=== PATIENT | female | born 1935 | race Caucasian/White ===

== ENCOUNTER 2018-06-05 10:29 | Day surgery (SDC) | payer MEDICARE, OTHER ==
[2018-06-05] MEDS ORDERED: OSC500T PO (12:21)
[2018-06-05] MEDS ORDERED: MULT1TAB74 PO (12:21)
[2018-06-05] MEDS ORDERED: HYDR-3965 PO (12:21)
[2018-06-05] MEDS ORDERED: ABEM100T PO (12:21)
[2018-06-05] MEDS ORDERED: FULV250D2 (12:21)
[2018-06-05] MEDS ORDERED: RIVA20TA PO (12:21)
[2018-06-05] MEDS ORDERED: TRIA1CAP6 PO (12:21)
[2018-06-05] MEDS ORDERED: GABA-530 PO (12:21)
[2018-06-05] MEDS ORDERED: DENO120V (12:24)
== END 2018-06-05 12:45 | disposition home or self-care (01) ==
LOC: WOUND CARE 10:29
PROVIDERS: ATTEND Surgery
DX: T81.89XA Other complications of procedures, not elsewhere classified, initial encounter (principal); L98.412 Non-pressure chronic ulcer of buttock with fat layer exposed; Z96.653 Presence of artificial knee joint, bilateral; Y83.8 Other surgical procedures as the cause of abnormal reaction of the patient, or of later complication, without mention of misadventure at the time of the procedure
CPT/HCPCS: 11042; A6021; A6212

== ENCOUNTER 2018-06-12 10:27 | Day surgery (SDC) | payer MEDICARE, OTHER ==
[~2018-06-12 10:27] MED LIST: ABEM100T PO; DENO120V; FULV250D2; GABA-530 PO; HYDR-3965 PO; MULT1TAB74 PO; OSC500T PO; RIVA20TA PO; TRIA1CAP6 PO
== END 2018-06-12 12:37 | disposition home or self-care (01) ==
LOC: WOUND CARE 10:27
PROVIDERS: ATTEND Surgery
DX: T80.89XD Other complications following infusion, transfusion and therapeutic injection, subsequent encounter (principal); L98.412 Non-pressure chronic ulcer of buttock with fat layer exposed; Z96.653 Presence of artificial knee joint, bilateral; Y83.8 Other surgical procedures as the cause of abnormal reaction of the patient, or of later complication, without mention of misadventure at the time of the procedure
CPT/HCPCS: 11042; 87070; 87075; 87102; A6213; A6266; 87076

== ENCOUNTER 2018-06-15 10:30 | Outpatient (CLI) | payer MEDICARE, OTHER | END 2018-06-15 12:45 | disposition home or self-care (01) | LOC: WOUND CARE 10:30 → EDSTATUS 10:30 → WOUND CARE 12:45 | PROVIDERS: ATTEND Surgery | DX: T81.89XD Other complications of procedures, not elsewhere classified, subsequent encounter (principal); L98.412 Non-pressure chronic ulcer of buttock with fat layer exposed; Z96.653 Presence of artificial knee joint, bilateral; Y83.8 Other surgical procedures as the cause of abnormal reaction of the patient, or of later complication, without mention of misadventure at the time of the procedure | CPT/HCPCS: 99214; A6212; A6266 ==

== ENCOUNTER 2018-06-20 09:58 | Day surgery (SDC) | payer MEDICARE, OTHER | END 2018-06-20 11:51 | disposition home or self-care (01) | LOC: WOUND CARE 09:58 | PROVIDERS: ATTEND Surgery | DX: T81.89XD Other complications of procedures, not elsewhere classified, subsequent encounter (principal); L98.412 Non-pressure chronic ulcer of buttock with fat layer exposed; Z96.653 Presence of artificial knee joint, bilateral; Y83.8 Other surgical procedures as the cause of abnormal reaction of the patient, or of later complication, without mention of misadventure at the time of the procedure | CPT/HCPCS: 11042; A6212; A6266 ==

== ENCOUNTER 2018-06-23 09:49 | Outpatient (CLI) | payer MEDICARE, OTHER | END 2018-06-23 11:15 | disposition home or self-care (01) | LOC: WOUND CARE 09:49 → EDSTATUS 10:00 → WOUND CARE 11:15 | PROVIDERS: ATTEND Surgery | DX: T81.89XD Other complications of procedures, not elsewhere classified, subsequent encounter (principal); L98.412 Non-pressure chronic ulcer of buttock with fat layer exposed; Z96.653 Presence of artificial knee joint, bilateral; Y83.8 Other surgical procedures as the cause of abnormal reaction of the patient, or of later complication, without mention of misadventure at the time of the procedure | CPT/HCPCS: 99211; A6212; A6266 ==

== ENCOUNTER 2018-06-27 09:56 | Day surgery (SDC) | payer MEDICARE, OTHER | END 2018-06-27 11:13 | disposition home or self-care (01) | LOC: WOUND CARE 09:56 | PROVIDERS: ATTEND Surgery | DX: T81.89XD Other complications of procedures, not elsewhere classified, subsequent encounter (principal); L98.412 Non-pressure chronic ulcer of buttock with fat layer exposed; Z96.653 Presence of artificial knee joint, bilateral; Y83.8 Other surgical procedures as the cause of abnormal reaction of the patient, or of later complication, without mention of misadventure at the time of the procedure | CPT/HCPCS: 97597; A6021; A6212 ==

== ENCOUNTER 2018-07-04 09:45 | Day surgery (SDC) | payer MEDICARE, OTHER ==
[2018-07-04] MEDS ORDERED: LIDOcaine/PRILOcaine 5gm cream TP ONE (09:53)
== END 2018-07-04 12:05 | disposition home or self-care (01) ==
LOC: WOUND CARE 09:45
PROVIDERS: ATTEND Surgery
DX: T81.89XD Other complications of procedures, not elsewhere classified, subsequent encounter (principal); L98.412 Non-pressure chronic ulcer of buttock with fat layer exposed; Z96.653 Presence of artificial knee joint, bilateral; Y83.8 Other surgical procedures as the cause of abnormal reaction of the patient, or of later complication, without mention of misadventure at the time of the procedure
CPT/HCPCS: 11042; A6021; A6213

== ENCOUNTER 2018-07-11 09:29 | Day surgery (SDC) | payer MEDICARE, OTHER ==
[2018-07-11] MEDS ORDERED: LIDOcaine/PRILOcaine 5gm cream TP ONE (09:37)
== END 2018-07-11 10:20 | disposition home or self-care (01) ==
LOC: WOUND CARE 09:29
PROVIDERS: ATTEND Surgery
DX: T81.89XD Other complications of procedures, not elsewhere classified, subsequent encounter (principal); L98.412 Non-pressure chronic ulcer of buttock with fat layer exposed; Z96.653 Presence of artificial knee joint, bilateral; Y83.8 Other surgical procedures as the cause of abnormal reaction of the patient, or of later complication, without mention of misadventure at the time of the procedure
CPT/HCPCS: A6222; C5271; Q4102; A6021; A6212

== ENCOUNTER 2018-07-18 09:27 | Day surgery (SDC) | payer MEDICARE, OTHER ==
[2018-07-18] MEDS ORDERED: LIDOcaine/PRILOcaine 5gm cream TP ONE (09:42)
== END 2018-07-18 10:51 | disposition home or self-care (01) ==
LOC: WOUND CARE 09:27
PROVIDERS: ATTEND Surgery
DX: T81.89XD Other complications of procedures, not elsewhere classified, subsequent encounter (principal); L98.412 Non-pressure chronic ulcer of buttock with fat layer exposed; Z96.653 Presence of artificial knee joint, bilateral; Y83.8 Other surgical procedures as the cause of abnormal reaction of the patient, or of later complication, without mention of misadventure at the time of the procedure
CPT/HCPCS: 97597; A6021; A6206; A6212

== ENCOUNTER 2018-07-24 09:25 | Day surgery (SDC) | payer MEDICARE, OTHER | END 2018-07-24 11:21 | disposition home or self-care (01) | LOC: WOUND CARE 09:25 | PROVIDERS: ATTEND Surgery | DX: T81.89XD Other complications of procedures, not elsewhere classified, subsequent encounter (principal); L98.412 Non-pressure chronic ulcer of buttock with fat layer exposed; Z96.653 Presence of artificial knee joint, bilateral; Y83.8 Other surgical procedures as the cause of abnormal reaction of the patient, or of later complication, without mention of misadventure at the time of the procedure | CPT/HCPCS: A6209; A6222; C5271; Q4102; A6212; A6250 ==

== ENCOUNTER 2018-08-08 09:28 | Day surgery (SDC) | payer MEDICARE, OTHER ==
[2018-08-08] MEDS ORDERED: LIDOcaine/PRILOcaine 5gm cream TP ONE (10:18)
== END 2018-08-08 11:07 | disposition home or self-care (01) ==
LOC: WOUND CARE 09:28
PROVIDERS: ATTEND Surgery
DX: T81.89XD Other complications of procedures, not elsewhere classified, subsequent encounter (principal); L98.412 Non-pressure chronic ulcer of buttock with fat layer exposed; Z96.653 Presence of artificial knee joint, bilateral; Y83.8 Other surgical procedures as the cause of abnormal reaction of the patient, or of later complication, without mention of misadventure at the time of the procedure
CPT/HCPCS: A6021; A6212

== ENCOUNTER 2018-08-15 09:30 | Day surgery (SDC) | payer MEDICARE, OTHER | END 2018-08-15 10:42 | disposition home or self-care (01) | LOC: WOUND CARE 09:30 | PROVIDERS: ATTEND Surgery | DX: T81.89XD Other complications of procedures, not elsewhere classified, subsequent encounter (principal); L98.412 Non-pressure chronic ulcer of buttock with fat layer exposed; Z96.653 Presence of artificial knee joint, bilateral; Y83.8 Other surgical procedures as the cause of abnormal reaction of the patient, or of later complication, without mention of misadventure at the time of the procedure | CPT/HCPCS: 97597; A6021; A6206; A6212 ==

== ENCOUNTER 2018-08-29 09:33 | Day surgery (SDC) | payer MEDICARE | END 2018-08-29 10:44 | disposition home or self-care (01) | LOC: WOUND CARE 09:33 | PROVIDERS: ATTEND Surgery | DX: T81.89XD Other complications of procedures, not elsewhere classified, subsequent encounter (principal); L98.412 Non-pressure chronic ulcer of buttock with fat layer exposed; Z96.653 Presence of artificial knee joint, bilateral; Y83.8 Other surgical procedures as the cause of abnormal reaction of the patient, or of later complication, without mention of misadventure at the time of the procedure | CPT/HCPCS: 17250; 97597; A6021; A6212 ==

== ENCOUNTER 2018-09-19 09:28 | Outpatient (CLI) | payer MEDICARE ==
--- NOTE | 2018-09-19 11:15 | NUR ---
Patient ambulated independently from [facility] accompanied by daughter Tigist and was admitted to outpatient wound care for physician visit with Tank Akhtar MD. Dressing removed, wound cleansed. Patient assessed for changes in conditions, medications and medical history. [facility] - Dr. Akhtar at bedside accompanied by RN. Wound assessed by and is declared healed by MD. Plan of care discussed with patient and Tigist. No dressing ordered or placed. Patient instructed on the signs and symptoms of infection and to call the [facility]ound [facility] if any occur or to go to the ED if we are closed: Increased pain in wound Increase in drainage from the wound Redness in the skin surrounding the wound Bleeding from the wound Temperature of 101 or greater Patient instructed that the weight of their body puts a large amount of pressure on their wounds. This pressure keeps the new tissue from growing and inhibits new blood vessels from forming. Explained that, if they continue to bear weight on a body part that has a wound, the time it takes to heal the wound increases, the wound may get worse or the wound may not heal at all. Patient and Tigist verbalized understanding of all discharge instructions and plan of care and patient ambulated independently out to [facility] accompanied by Tigist and is in stable condition with no sign or symptom of distress at time of discharge.
== END 2018-09-19 11:10 | disposition home or self-care (01) ==
LOC: WOUND CARE 09:28 → EDSTATUS 09:30 → WOUND CARE 11:10
PROVIDERS: ATTEND Surgery
DX: T81.89XD Other complications of procedures, not elsewhere classified, subsequent encounter (principal); L98.412 Non-pressure chronic ulcer of buttock with fat layer exposed; Z96.653 Presence of artificial knee joint, bilateral; Z85.3 Personal history of malignant neoplasm of breast; Z85.830 Personal history of malignant neoplasm of bone; Y83.8 Other surgical procedures as the cause of abnormal reaction of the patient, or of later complication, without mention of misadventure at the time of the procedure
CPT/HCPCS: G0463

== ENCOUNTER 2020-04-09 21:19 | Emergency (ER) | payer MEDICARE ==
[~2020-04-09] VITALS: Ht 157.5 cm; Wt 66.8 kg
[~2020-04-09 21:19] MED LIST changes: +CALC-965 PO; +CHLO118M PO; -DENO120V; +DENO120V IM; -FULV250D2; -HYDR-3965 PO; +HYDR-4383 PO; +MULT-1085 PO; -MULT1TAB74 PO; -OSC500T PO; -TRIA1CAP6 PO; +[UNRECOGNIZED DRUG - CODE] PO
[2020-04-09] MEDS ORDERED: normal saline 1000ML IV soln IVB ONE (22:35)
[2020-04-09] MEDS ORDERED: ondansetron/PF 4mg/2ml inj IV ONE (22:35)
[2020-04-09] MEDS ORDERED: pantoprazole 40 MG vial IV ONE (22:35)
--- NOTE | 2020-04-09 22:44 | NUR ---
Return from X-ray via w/c.
--- NOTE | 2020-04-09 22:58 | NUR ---
pt unable to void at this time, she would like to wait for her fluids to finish
[2020-04-09 23:02] LABS: BASOPHILS % (AUTO) 0.2 % (0-1); EOSINOPHILS % (AUTO) 0.5 % (0-6); HEMATOCRIT 25.9 % (35.0-45.0); HEMOGLOBIN 8.6 g/dl (12.0-16.0); LYMPHOCYTES # (AUTO) 0.9 X10'3 (1.1-4.8); LYMPHOCYTES % (AUTO) 19.8 % (21-51); MEAN CORPUSCULAR HGB CONC 33.3 g/dL (33.0-36.5); MONOCYTES # (AUTO) 0.3 X10'3 (0-0.9); MONOCYTES % (AUTO) 5.9 % (2-12); NEUTROPHILS # (AUTO) 3.4 X10'3 (1.8-7.7); NEUTROPHILS % (AUTO) 73.6 % (42-75); PLATELET COUNT 161 X10'3 (140-440); RED CELL DISTRIBUTION WIDTH 14.6 % (11.5-14.5); WHITE BLOOD COUNT 4.6 X10'3 (4.5-11.0)
[2020-04-09 23:17] LABS: ALANINE AMINOTRANSFERASE 16 U/L (12-78); ALBUMIN 3.4 G/DL (3.4-5.0); ALBUMIN/GLOBULIN RATIO 1.1 (1.1-1.5); ALKALINE PHOSPHATASE 82 IU/L (46-116); ANION GAP 5 (8-16); ASPARTATE AMINO TRANSFERASE 19 U/L (10-37); BILIRUBIN,TOTAL 0.8 MG/DL (0.1-1.0); BLOOD UREA NITROGEN 24 MG/DL (7-18); BUN/CREATININE RATIO 12.8 (6.6-38.0); CALCIUM 10.4 MG/DL (8.5-10.1); CHLORIDE 105 MMOL/L (99-107); CREATININE 1.88 MG/DL (0.40-0.90); GLUCOSE 101 MG/DL (70-104); POTASSIUM 3.3 MMOL/L (3.5-5.1); SODIUM 138 MMOL/L (135-145); TOTAL PROTEIN 6.6 G/DL (6.4-8.2); eGFR 25 ML/MIN
[2020-04-09 23:34] LABS: CLARITY,URINE CLEAR (Clear); COLOR,URINE YELLOW (Yellow); GLUCOSE, URINE NEGATIVE (Neg); KETONES,URINE TRACE mg/dl (Neg); LEUKOCYTE ESTERASE ,URINE TRACE (Neg); NITRITES, URINE NEGATIVE (Neg); OCCULT BLOOD,URINE NEGATIVE (Neg); PH,URINE 5.5 (4.8-8.0); PROTEIN,URINE NEGATIVE (Neg); UROBILINOGEN,URINE 0.2 E.U/dL (0.2-1.0)
[2020-04-09 23:38] LABS: UA COLLECTION TYPE CLN CATCH MIDSTREAM
[2020-04-09 23:40] LABS: BACTERIA,URINE FEW /HPF (Neg); RBC,URINE NONE SEEN /HPF (0-2); SQUAMOUS EPITHELIAL CELL,UR FEW /LPF (FEW); WBC,URINE 0-4 /HPF (0-4)
[2020-04-10 00:09] VITALS: BP 148/80
== END 2020-04-10 00:37 | disposition home or self-care (01) ==
LOC: ER 21:19
DX: R50.9 Fever, unspecified (principal); Z20.828 Contact with and (suspected) exposure to other viral communicable diseases; I10 Essential (primary) hypertension; Z85.3 Personal history of malignant neoplasm of breast; Z79.899 Other long term (current) drug therapy
CPT/HCPCS: 36415; 71046; 80053; 81001; 85025; 87088; 96374; 96375; 99284; C9113; J2405; J7030; U0003

== ENCOUNTER 2020-05-24 12:17 | Observation (INO) | payer MEDICARE ==
[~2020-05-24] VITALS: Ht 158.8 cm; Wt 66.8 kg
[2020-05-24 13:03] LABS: BASOPHILS # (AUTO) 0.1 X10'3 (0-0.2); BASOPHILS % (AUTO) 1.5 % (0-1); EOSINOPHILS # (AUTO) 0.1 X10'3 (0-0.9); EOSINOPHILS % (AUTO) 2.5 % (0-6); HEMATOCRIT 24.7 % (35.0-45.0); HEMOGLOBIN 8.1 g/dl (12.0-16.0); LYMPHOCYTES # (AUTO) 1.1 X10'3 (1.1-4.8); LYMPHOCYTES % (AUTO) 31.5 % (21-51); MEAN CORPUSCULAR HGB CONC 32.9 g/dL (33.0-36.5); MEAN CORPUSCULAR VOLUME 97.5 FL (78-98); MEAN PLATELET VOLUME 6.3 FL (7.4-10.4); MONOCYTES # (AUTO) 0.3 X10'3 (0-0.9); MONOCYTES % (AUTO) 7.3 % (2-12); NEUTROPHILS # (AUTO) 2.1 X10'3 (1.8-7.7); NEUTROPHILS % (AUTO) 57.2 % (42-75); PLATELET COUNT 195 X10'3 (140-440); RED BLOOD COUNT 2.54 X10'6 (4.20-5.60); RED CELL DISTRIBUTION WIDTH 14.9 % (11.5-14.5); WHITE BLOOD COUNT 3.6 X10'3 (4.5-11.0)
[2020-05-24 13:14] LABS: PARTIAL THROMBOPLASTIN TIME 30 SECONDS (22-32)
[2020-05-24 13:16] LABS: ALANINE AMINOTRANSFERASE 17 U/L (12-78); ALBUMIN 3.3 G/DL (3.4-5.0); ALBUMIN/GLOBULIN RATIO 1.1 (1.1-1.5); ALKALINE PHOSPHATASE 85 IU/L (46-116); ANION GAP 5 (8-16); ASPARTATE AMINO TRANSFERASE 21 U/L (10-37); BILIRUBIN,TOTAL 0.6 MG/DL (0.1-1.0); BLOOD UREA NITROGEN 19 MG/DL (7-18); CALCIUM 10.4 MG/DL (8.5-10.1); CHLORIDE 102 MMOL/L (99-107); CREATININE 1.72 MG/DL (0.40-0.90); GLUCOSE 97 MG/DL (70-104); POTASSIUM 3.2 MMOL/L (3.5-5.1); SODIUM 138 MMOL/L (135-145); TOTAL CARBON DIOXIDE 31.2 MMOL/L (24-32); TOTAL PROTEIN 6.4 G/DL (6.4-8.2); eGFR 28 ML/MIN
[2020-05-24] MEDS ORDERED: normal saline 1000ml 1,000 ML IV SCH (14:41)
[2020-05-24] MEDS ORDERED: magnesium 2GM in 50ml NS 50 ML IV PRN (14:45)
[2020-05-24] MEDS ORDERED: mag hydrox/Alum hydrox/simeth 30ml oral suspension PO PRN (14:45)
[2020-05-24] MEDS ORDERED: acetaminophen 650mg rectal suppository RC PRN (14:45)
[2020-05-24] MEDS ORDERED: bisacodyl 10mg suppository rectal RC PRN (14:45)
[2020-05-24] MEDS ORDERED: potassium Cl 20 mEq SR tablet PO PRN (14:45)
[2020-05-24] MEDS ORDERED: HYDROcodone/acetaminophen 10/325mg tab PO PRN (14:45)
[2020-05-24] MEDS ORDERED: morphine 2 MG/ML inj. syringe IV PRN ×2 (14:45)
[2020-05-24] MEDS ORDERED: ondansetron/PF 4mg/2ml inj IV PRN (14:45)
[2020-05-24] MEDS ORDERED: magnesium 4gm in 100ml NS 100 ML IV PRN (14:45)
[2020-05-24] MEDS ORDERED: magnesium hydroxide 30ml (MOM) UD suspension PO PRN (14:45)
[2020-05-24] MEDS ORDERED: HYDROcodone/acetaminophen 5mg/325mg tablet PO PRN (14:45)
[2020-05-24] MEDS ORDERED: magnesium Cl slow-release 64mg tablet PO PRN (14:45)
[2020-05-24] MEDS ORDERED: acetaminophen 325mg tablet PO PRN ×2 (14:45)
[2020-05-24] MEDS ORDERED: potassium CL 10mEq/100ml bag 100 ML IV PRN ×2 (14:45)
--- NOTE | 2020-05-24 16:35 | NUR ---
Patient in room [facility]. I have received report from Noel BUI and had the opportunity to ask questions and assume patient care.
[2020-05-24 17:34] LABS: OCCULT BLOOD STOOL NEGATIVE (Neg)
[2020-05-24 18:00] VITALS: BP 155/72
--- NOTE | 2020-05-24 18:21 | NUR ---
Patient in room [facility]. I have received report from Anny BUI and had the opportunity to ask questions and assume patient care.
--- NOTE | 2020-05-24 18:21 | NUR ---
Patient in room [facility]. I have received report from MOHAN BUI and had the opportunity to ask questions and assume patient care.
[2020-05-24] MEDS: potassium Cl 20 mEq SR tablet PO PRN ×2 (19:22→23:59)
[2020-05-24] MEDS ORDERED: APIX2.5T PO (19:48)
[2020-05-24] MEDS: K and/or MAG REPLACEMENT MC SCH (20:00)
[2020-05-24 20:41] VITALS: BP 161/68
[2020-05-24] MEDS ORDERED: temazepam 15mg capsule PO PRN (21:00)
[2020-05-24 21:01] VITALS: BP 164/74
[2020-05-24] MEDS: apixaban 2.5mg tablet PO SCH (21:22)
[2020-05-24] MEDS: gabapentin 100mg capsule PO SCH (21:22)
[2020-05-24 22:01] VITALS: BP 146/73
[2020-05-24 23:01] VITALS: BP 142/72
[2020-05-25] VITALS: BP 142/72
[2020-05-25] MEDS ORDERED: gabapentin 100mg capsule PO SCH
[2020-05-25 00:50] VITALS: BP 154/74
[2020-05-25 05:41] LABS: BASOPHILS % (AUTO) 1.5 % (0-1); EOSINOPHILS # (AUTO) 0.1 X10'3 (0-0.9); EOSINOPHILS % (AUTO) 2.9 % (0-6); HEMATOCRIT 22.4 % (35.0-45.0); HEMOGLOBIN 7.5 g/dl (12.0-16.0); LYMPHOCYTES # (AUTO) 1.2 X10'3 (1.1-4.8); LYMPHOCYTES % (AUTO) 42.3 % (21-51); MEAN CORPUSCULAR HEMOGLOBIN 32.2 PG (27.0-31.0); MEAN CORPUSCULAR HGB CONC 33.6 g/dL (33.0-36.5); MEAN CORPUSCULAR VOLUME 95.8 FL (78-98); MEAN PLATELET VOLUME 6.7 FL (7.4-10.4); MONOCYTES # (AUTO) 0.3 X10'3 (0-0.9); MONOCYTES % (AUTO) 8.8 % (2-12); NEUTROPHILS # (AUTO) 1.3 X10'3 (1.8-7.7); NEUTROPHILS % (AUTO) 44.5 % (42-75); PLATELET COUNT 150 X10'3 (140-440); RED BLOOD COUNT 2.34 X10'6 (4.20-5.60); RED CELL DISTRIBUTION WIDTH 15.2 % (11.5-14.5); WHITE BLOOD COUNT 2.9 X10'3 (4.5-11.0)
[2020-05-25 05:53] LABS: ALANINE AMINOTRANSFERASE 18 U/L (12-78); ALBUMIN 2.9 G/DL (3.4-5.0); ALBUMIN/GLOBULIN RATIO 1.1 (1.1-1.5); ALKALINE PHOSPHATASE 78 IU/L (46-116); ANION GAP 6 (8-16); ASPARTATE AMINO TRANSFERASE 23 U/L (10-37); BILIRUBIN,TOTAL 0.6 MG/DL (0.1-1.0); BLOOD UREA NITROGEN 20 MG/DL (7-18); BUN/CREATININE RATIO 12.2 (6.6-38.0); CALCIUM 10.2 MG/DL (8.5-10.1); CHLORIDE 107 MMOL/L (99-107); CHOLESTEROL 118 MG/DL (0-200); CREATININE 1.64 MG/DL (0.40-0.90); GLUCOSE 85 MG/DL (70-104); HDL CHOLESTEROL 60 MG/DL (35-60); LDL CHOLESTEROL 39 MG/DL (50-100); MAGNESIUM 1.3 MG/DL (1.5-2.4); PHOSPHORUS 3.2 MG/DL (2.3-4.5); POTASSIUM 3.8 MMOL/L (3.5-5.1); SODIUM 142 MMOL/L (135-145); TOTAL PROTEIN 5.6 G/DL (6.4-8.2); TRIGLYCERIDES 123 MG/DL (20-135); eGFR 30 ML/MIN
[2020-05-25] MEDS: gabapentin 100mg capsule PO SCH (06:00)
--- NOTE | 2020-05-25 06:34 | NUR ---
Problems reprioritized. Patient report given, questions answered & plan of care reviewed with Anny BUI.
--- NOTE | 2020-05-25 06:38 | NUR ---
Patient in room [facility]. I have received report from Pamela BUI and had the opportunity to ask questions and assume patient care.
[2020-05-25 06:39] LABS: PLATELET ESTIMATE NORMAL; TOTAL CELLS COUNTED 100
[2020-05-25 06:40] LABS: ANISOCYTOSIS 1+; ELLIPTOCYTES FEW; HYPOCHROMASIA 1+; SCHISTOCYTES FEW
[2020-05-25] MEDS: apixaban 2.5mg tablet PO SCH (07:29)
[2020-05-25 08:00] VITALS: BP 186/87
[2020-05-25] MEDS: K and/or MAG REPLACEMENT MC SCH (08:00)
[2020-05-25] MEDS ORDERED: ABEMACICLIB 100 MG PO SCH (08:00)
[2020-05-25] MEDS ORDERED: calcium carbonate/vitamin D3 tablet PO SCH (08:00)
[2020-05-25] MEDS ORDERED: multivitamins, therapeutics tablet PO SCH (08:00)
[2020-05-25] MEDS ORDERED: chlorhexidine gluconate 15ml Cup****oral rinse MM SCH (08:00)
[2020-05-25 08:30] VITALS: BP 168/79
[2020-05-25 11:21] LABS: HEMATOCRIT 24.1 % (35.0-45.0); HEMOGLOBIN 8.1 g/dl (12.0-16.0); MEAN CORPUSCULAR HEMOGLOBIN 32.2 PG (27.0-31.0); MEAN CORPUSCULAR HGB CONC 33.6 g/dL (33.0-36.5); MEAN CORPUSCULAR VOLUME 95.9 FL (78-98); MEAN PLATELET VOLUME 6.4 FL (7.4-10.4); PLATELET COUNT 160 X10'3 (140-440); RED BLOOD COUNT 2.52 X10'6 (4.20-5.60); RED CELL DISTRIBUTION WIDTH 15.2 % (11.5-14.5); WHITE BLOOD COUNT 3.1 X10'3 (4.5-11.0)
[2020-05-25] MEDS ORDERED: LORazepam 0.5 MG tablet PO STA (11:43)
[2020-05-25 12:00] VITALS: BP 171/71
[2020-05-25] MEDS ORDERED: FERR325T28 PO (12:02)
[2020-05-25] MEDS ORDERED: ASCO-134 PO (12:02)
--- NOTE | 2020-05-25 13:45 | NUR ---
Pt DC to home with daughter. pt is A & O x4, Pt verbalizes understanding of all DC orders. Pt is very happy to go home. Pt was very anxious about staying one more day due to her neutropenic state. Pt packed and dressed herself. Daughter picking her up. Pt's IV removed and is intact. Pt wheeled to the front where daughter picked her up.
[2020-05-26] MEDS ORDERED: gabapentin 100mg capsule PO SCH (08:00)
== END 2020-05-25 13:46 | disposition home health service (06) ==
LOC: ER 12:18 → ED HOLD 14:41 → SUR 3N 16:16
PROVIDERS: ADMIT Family Medicine; ATTEND Family Medicine
DX: D64.9 Anemia, unspecified (principal); R42 Dizziness and giddiness; C50.919 Malignant neoplasm of unspecified site of unspecified female breast; C79.9 Secondary malignant neoplasm of unspecified site; E83.52 Hypercalcemia; I12.9 Hypertensive chronic kidney disease with stage 1 through stage 4 chronic kidney disease, or unspecified chronic kidney disease; N18.3 Chronic kidney disease, stage 3 (moderate); F41.9 Anxiety disorder, unspecified; E87.6 Hypokalemia; G62.9 Polyneuropathy, unspecified; R06.00 Dyspnea, unspecified; R26.81 Unsteadiness on feet; Z96.653 Presence of artificial knee joint, bilateral; Z90.49 Acquired absence of other specified parts of digestive tract; Z90.89 Acquired absence of other organs; Z66 Do not resuscitate; Z79.01 Long term (current) use of anticoagulants; Z79.899 Other long term (current) drug therapy
CPT/HCPCS: 36415; 36430; 71045; 80053; 80061; 82272; 83036; 83735; 84100; 85025; 85027; 85610; 85730; 86885; 86900; 86901; 86920; 87081; 96360; 96361; 97161; 97530; 99284; G0378; J7030; P9016; 85007

== ENCOUNTER 2023-07-01 01:34 | Emergency (ER) | payer MEDICARE, OTHER ==
[~2023-07-01] VITALS: Ht 154.9 cm; Wt 63.6 kg
[~2023-07-01 01:34] MED LIST changes: +APIX2.5T PO; +ASCO-134 PO; -DENO120V IM; -RIVA20TA PO; -[UNRECOGNIZED DRUG - CODE] PO
[2023-07-01 01:39] VITALS: BP 182/82; PULSE 82; TEMP 98.6; O2SAT 97
[2023-07-01] MEDS ORDERED: oxyCODONE/APAP 5-325mg tablet PO ONE (02:45)
[2023-07-01] MEDS ORDERED: HYDROmorphone 1 mg/ml syringe IM ONE (02:45)
[2023-07-01 03:04] VITALS: RESP 17
== END 2023-07-01 06:54 | disposition home or self-care (01) ==
LOC: ER 01:34
DX: M25.511 Pain in right shoulder (principal); I12.0 Hypertensive chronic kidney disease with stage 5 chronic kidney disease or end stage renal disease; N18.9 Chronic kidney disease, unspecified; Z79.899 Other long term (current) drug therapy
CPT/HCPCS: 96372; 99283; J1170

== ENCOUNTER 2023-08-28 22:23 | Emergency (ER) | payer MEDICARE, OTHER ==
[~2023-08-28] VITALS: Ht 154.9 cm; Wt 61.8 kg
[2023-08-28] MEDS ORDERED: LIDOcaine 5% patch TP STA (23:20)
[2023-08-28] MEDS ORDERED: HYDROmorphone 1 mg/ml syringe IM ONE (23:20)
[2023-08-29 00:13] VITALS: PULSE 84; RESP 16; TEMP 98.7; O2SAT 97
== END 2023-08-29 00:15 | disposition home or self-care (01) ==
LOC: ER 22:24
DX: M25.511 Pain in right shoulder (principal); I12.9 Hypertensive chronic kidney disease with stage 1 through stage 4 chronic kidney disease, or unspecified chronic kidney disease; N18.9 Chronic kidney disease, unspecified
CPT/HCPCS: 96372; 99283; J1170